=== PATIENT | male | born 2005 | race Caucasian/White ===

== ENCOUNTER → 2025-03-26 09:50 | Outpatient (REF) | payer BC, SELFPAY | LOC: RCS 09:50 | PROVIDERS: ATTENDING PHYSICIAN Nurse Practitioner Family | DX: R00.2 Palpitations (principal) | CPT/HCPCS: 93225; 93226 ==

== ENCOUNTER → 2025-07-21 15:03 | Outpatient (REF) | payer BC, SELFPAY | LOC: RCS 15:03 | PROVIDERS: ATTENDING PHYSICIAN Internal Medicine; FAMILY PHYSICIAN Physician Assistant Medical | DX: R00.2 Palpitations (principal); I47.11 Inappropriate sinus tachycardia, so stated | CPT/HCPCS: 93306 ==